=== PATIENT | male | born 1960 | race Caucasian/White ===

== ENCOUNTER 2025-10-16 08:04 | Day surgery (SDC) | payer OTHER, SELFPAY ==
[2025-10-08 12:57] VITALS: BMI 31.2
[2025-10-08 13:44] LABS: Hematocrit 40.7 % (39.0-52.0); Hemoglobin 13.6 g/dL (13.0-18.0); Mean Corp Hgb Conc. 33.4 g/dL (33.0-37.0); Mean Corpuscular Volume 91.3 fL (80.0-94.0); Platelet Count 187 10^3/uL (130-400); Red Cell Dist. Width 16.0 % (11.5-14.5)
[2025-10-08 13:49] LABS: INR 1.22; PT 15.2 Sec (11.4-14.6)
[2025-10-08 13:52] LABS: ALT (SGPT) 30 U/L (0-50); AST (SGOT) 28 U/L (17-59); Albumin 4.2 g/dl (3.5-5.0); Alkaline Phosphatase 100 U/L (38-126); Blood Urea Nitrogen 26 mg/dl (9-20); Calcium 9.3 mg/dl (8.4-10.2); Carbon Dioxide 27 mmol/L (22-30); Chloride 103 mmol/L (98-107); Estimated Creatinine Clearance 84 ml/min; Glucose 101 mg/dl (70-99); Magnesium 2.0 mg/dl (1.6-2.3); Potassium 4.4 mmol/L (3.5-5.1); Sodium 137 mmol/L (135-145); Total Protein 8.4 g/dl (6.3-8.2); eGFR > 60.00
[2025-10-08 14:07] LABS: Absolute Neutrophils -Man Diff 1.7 10^3/uL (1.4-6.5); Normal RBC Morphology Yes; Platelets Checked Yes; Total Cells Counted 100
[2025-10-16] VITALS (20 sets, daily range): BP systolic 116–156; BP diastolic 61–93; BMI 30.6
[2025-10-16 11:26] LABS: ACT-LR - POC 279 Seconds (116-155)
[2025-10-16 11:47] LABS: ACT-LR - POC 334 Seconds (116-155)
[2025-10-16 12:06] LABS: ACT-LR - POC 327 Seconds (116-155)
--- NOTE | 2025-10-16 12:39 | ITS.CL.ABL ---
Document Processor - Ablation
Ablation
Procedure Report:
ELECTROPHYSIOLOGY ABLATION STUDY
DATE:: October 16, 2025���������������������������REFERRING: Dr. Mirza
INDICATION: Early persistent supraventricular tachycardia in the form of atrial fibrillation.��Some organization on intracardiac electrograms suggesting possible left atrial flutter.
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
ANTIARRHYTHMIC DRUG: Amiodarone as needed
PRE-PROCEDURE EUGENIA: Intracardiac ultrasound was utilized to guide catheter manipulation and transseptal puncture. Given the patient's congenital abnormality navigating the ice through the cardiac chambers and finding the important structures was
somewhat difficult
PRESENTING RHYTHM: Atrial pacing
'TIME-OUT':��called and confirmed.
SEDATION/ANESTHESIA:��provided via the anesthesia department using general anesthesia (LMA).
INTRAVENOUS/ARTERIAL ACCESS:
Right femoral venous -8Fr
Left femoral venous - 8 Fr, 6 Fr
[id number] suture bilaterally within the procedure.
Ultrasound guidance for bilateral femoral vein access was utilized by me to obtain access with demonstration of normal anatomy
CHADS-VASC Score:
Defibrillation pads were placed in the AP positions and the posterior pad was placed slightly more leftward of the spine for a better defibrillation vector given the leftward and posterior tilt of the heart.
HAS-Bled Score
PROCEDURE:
1.��A decapolar CS catheter was placed within the CS for mapping and pacing.��This was also used as the reference catheter for the 3-D map. Given the patient's congenital abnormality of the heart is rotated in the chest more leftward and posterior
which was confirmed by prior MRI. Reviewed the limited case reports on this abnormality and ablation suggesting a more posterior tilt to the interatrial fossa and coronary sinus. 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
challenging to navigate with steerable catheters. There was no evidence of pericardium or pericardial effusion at baseline or at the end of the procedure. The patient maintained hemodynamic stability without evidence for bleeding in the left
thorax during the procedure.
A decapolar catheter was utilized to define the IVC RA junction and navigate up to the SVC to define the SVC to IVC transit. Intracardiac ultrasound was then navigated into the right atrium and the right atrium right ventricle were identified and
ultimately the interatrial fossa left atrium and left ventricle were identified. Fluoroscopic imaging and intracardiac ultrasound imaging demonstrated the more posterior, somewhat inferior, and leftward tilt to the heart.
2. The intracardiac ultrasound catheter was positioned in the RA to identify the FO for targeting of transseptal puncture, assist��in identification of the pulmonary vein ostia, monitoring pre and post ablation pulmonary vein flow velocities,
monitoring for 'bubble' formation during RF application as a sign of thermal injury,��and to monitor for pericardial effusion during mapping and ablation procedure.���Left atrial size, LV ejection fraction, and pulmonary vein flows were monitored
pre and post ablation procedure. The other valves were inspected and found to be free of significant regurgitation or stenosis.
3.��Half of the calculated heparin bolus was administered prior to the first transeptal puncture.��Transseptal puncture was performed to diagnose RA and LA pressure so that safety of LA mapping and ablation could be further assessed, and to access
the left atrium and pulmonary veins for mapping and ablation.��This entailed advancing an 10 [place] steerable with dilator into the superior vena cava and withdrawing both (monitoring intracardiac ultrasound, fluoroscopy and tip pressure) with the
tip oriented toward the atrial septum.��The fossa ovalis was engaged (indicated by sudden displacement of the sheath tip as well as tenting of the fossa seen on intracardiac ultrasound).��Left atrial access required a pass with the [place]
needle extended.��Left atrial catheter position was confirmed by pressure monitoring (RA mean pressure 2 mm Hg and LA mean presure 8 mm Hg), LA saturation (99%),��as well as fluoroscopy.��The sheath was advanced over the dilator and positioned in
the left atrium.��The remainder of the calculated heparin bolus was administered and heparin was
infused to maintain ACT at 300 -350 seconds throughout the case.
Following the decapolar catheter which we left in the SVC there was some difficulty navigating a J-wire up into the SVC to guide transseptal puncture. We utilized the decapolar catheter as a sarah wire to help in visualization and help guide the
table J-wire up into the SVC. Eventually this was accomplished with the Agilis helping to steer the wire more posteriorly and superiorly and the Agilis was brought up to the SVC/RA junction. The [place] needle was placed into the sheath and
brought up to the SVC/RA junction and a safe step wire was utilized from the beginning. Utilizing intracardiac ultrasound guidance and fluoroscopic guidance in AP and a steep lateral in place of [place] catheter sheath and needle were lowered
towards the fossa and engaged in the interatrial fossa. This was defined also by intracardiac ultrasound imaging which demonstrated the needle in and anterior and middle position in the interatrial fossa without aorta or pericardium in the
background. The engagement of the fossa had the left pulmonary veins in the background. We crossed in the left atrium utilizing the same set wire first and there was very little space between the left atrium and the aorta utilizing the interatrial
fossa. Once the safe step wire was imaged in the left atrium and free of the left atrial appendage dilator and sheath were brought into the left atrium pointed towards the left ventricle. The tip of the safe step wire was in the LV apex and we
utilized this for safety to avoid the left atrial appendage. Hemodynamics similarly remained and we brought the 9 mm lattice catheter to the left atrium to perform EP study, mapping of the left ventricle and ablation and mapping of the left atrium.
4.��RA pacing was performed via the proximal decapolar poles and LA pacing was performed via the distal decapolr poles.
5. A quadrapolar catheter was first positioned at the His position for His Bundle recording which was tagged via the 3-D Navex sytem, and then passed to the RVA for RV pacing and recording.
6. 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
7.��Next, a 3-D map was created using Navex.���A 3-D reconstructed CT image was compared to the 3-D Navex map to assist in anatomic interpretation, mapping and ablation.��The CT image and the NavX image were fused.
8. Catheter manipulation was extremely challenging given the leftward posterior and inferior tilt to the heart. Each vein was engaged with direct ultrasound guidance intracardiac ultrasound as well as left atrial pended. We then performed a wide
[place] ablation on the left and right veins which was relatively challenging and then performed a roofline and floor line to connect the wide circumferential ablation. Additional lesions were performed on the ligament of Ghanshyam side of the left
atrial appendage as well as the floor of the left atrium and the interatrial septum. This rendered entrance and exit block in all 5 pulmonary veins as well as the posterior wall which was rendered isolated with entrance next block from the roof
down to the floor. We then performed atrial extrastimuli and atrial burst pacing down to atrial refractoriness and the patient was noninducible for any other atrial arrhythmias. We then turned our attention to the left ventricle and mapping of the
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
9. Utilizing intracardiac guidance there was a focal area of wall motion abnormality in the basal inferolateral segment without aneurysm. Sampling and mapping of this region demonstrated relatively normal voltage with a relative paucity of late or
fractionated signal. We did perform EP study with burst pacing from the left ventricle, single double and triple extrastimuli with EP study performed from the border zone of the inferolateral scar. The patient was noninducible for any ventricular
arrhythmia. Of note there was a paucity of left bundle left inferior PVCs prior to sedation and there was an absence of PVCs during the period of time while the patient was on sedation.
We then performed interrogation of the device and left the programming at [id number]�DDDR 6103 bpm.
TOTAL FLOURO TIME: 26 minutes to 33 mGy
TOTAL RF DURATION: 0 minutes
REVERSAL OF HEPARIN: 35 mg of protamine, slow IV administration
COMPLICATIONS:
None
Intracardiac US shows no pericardial effusion post ablation.
SUMMARY:��
Complex left atrial mapping and ablation.
PVI and left atrial posterior wall isolation with PFA as above. Relatively normal electroanatomic voltage and paucity of late fractionated signal in the area of the inferolateral scar at the base. Noninducible for sustained VT with up to triple
extrastimuli from the border zone of the inferolateral scar at the LV base. Congenital absence of pericardium adding complexity to the procedure.
RECOMMENDATIONS:
1. Ambulate in 4 hours
2. Resume anticoagulation
3.� Amiodarone as needed if he has recurrence of atrial arrhythmia or significant ventricular arrhythmias beyond PVCs.
4.��Consider same-day discharge
Copy to: Dr. ELHAM Mirza
--- NOTE | 2025-10-16 16:14 | W.PN.UPDATE ---
Update Note
Progress Note Update
64 yo WM s/p PVI (same day). He denies cp, sob, osmin diet, b/l groins c/d/i no HT< soft, EKG Apaced. HE will resume Eliquis tonight after 7p. He will continue metoprolol and have amiodarone as needed for arrhythmias. ACtivity restrictions reviewed.
He will f/u Dr. Mirza in 1 mo. He is for d/c home after 530p if groins stable and able to void.
== END 2025-10-16 17:35 | disposition home or self-care (01) ==
LOC: CATH 08:04
PROVIDERS: ATTENDING PHYSICIAN Internal Medicine Cardiovascular Disease; FAMILY PHYSICIAN Family Medicine Adult Medicine; OTHER PHYSICIAN Internal Medicine Interventional Cardiology
DX: I48.0 Paroxysmal atrial fibrillation (principal); Q24.8 Other specified congenital malformations of heart; I47.20 Ventricular tachycardia, unspecified; I48.92 Unspecified atrial flutter; I13.0 Hypertensive heart and chronic kidney disease with heart failure and stage 1 through stage 4 chronic kidney disease, or unspecified chronic kidney disease; N18.30 Chronic kidney disease, stage 3 unspecified; I50.32 Chronic diastolic (congestive) heart failure; E78.5 Hyperlipidemia, unspecified; Z95.5 Presence of coronary angioplasty implant and graft; I25.10 Atherosclerotic heart disease of native coronary artery without angina pectoris; I49.5 Sick sinus syndrome; G47.30 Sleep apnea, unspecified; I95.1 Orthostatic hypotension; Z87.11 Personal history of peptic ulcer disease; Z86.0100 Personal history of colon polyps, unspecified; Z87.442 Personal history of urinary calculi; K58.9 Irritable bowel syndrome, unspecified; Z86.73 Personal history of transient ischemic attack (TIA), and cerebral infarction without residual deficits; G62.9 Polyneuropathy, unspecified; C90.00 Multiple myeloma not having achieved remission; N40.0 Benign prostatic hyperplasia without lower urinary tract symptoms; M10.9 Gout, unspecified; B35.6 Tinea cruris; E66.9 Obesity, unspecified; Z68.31 Body mass index [BMI] 31.0-31.9, adult; Z79.624 Long term (current) use of inhibitors of nucleotide synthesis; Z79.899 Other long term (current) drug therapy; Z79.01 Long term (current) use of anticoagulants; I42.9 Cardiomyopathy, unspecified; I47.10 Supraventricular tachycardia, unspecified; Z92.21 Personal history of antineoplastic chemotherapy; Z79.02 Long term (current) use of antithrombotics/antiplatelets
CPT/HCPCS: C1894 ×2; C1730; C1733; C1766; C1892; C1759; 36415; 80053; 83735; 85025; 85610; 86850; 86900; 86901; 93005; 93656; 93657